=== PATIENT | female | born 1990 | race Caucasian/White ===

== ENCOUNTER → 2023-09-18 | Outpatient (CLI) | payer OTHER ==
[~2023-09-18] MED LIST: CYAN500; DULO60 PO; GABA300 PO; HYDACE5 PO; IBUP200 PO; IBUP400 PO; LEVCAR100L PO; LORA.5 PO; LORA2 PO; METPRE4DP PO; NAPR550 PO; OXYACE5T PO; PREG150 PO; SERT100 PO; UBID100 PO; [UNRECOGNIZED DRUG - OTHER]; [UNRECOGNIZED DRUG - OTHER]; [UNRECOGNIZED DRUG - REMARK]
[2023-09-18 14:28] LABS: BASOPHILS ABSOLUTE AUTO 0.03 K/mm3 (0.00-0.23); BASOPHILS PERCENT AUTO 1 % (0-2); EOSINOPHILS ABSOLUTE AUTO 0.15 K/mm3 (0.00-0.68); EOSINOPHILS PERCENT AUTO 3 % (0-6); Hematocrit 41.5 % (33.0-51.0); Hemoglobin 13.4 g/dL (11.5-16.0); IMMATURE GRAN ABSOLUTE AUTO 0.02 K/mm3 (0.00-0.10); IMMATURE GRAN PERCENT AUTO 0 % (0-1); LYMPHOCYTES ABSOLUTE AUTO 1.41 K/mm3 (0.84-5.20); LYMPHOCYTES PERCENT AUTO 27 % (21-46); MONOCYTES PERCENT AUTO 6 % (4-13); Mean Corpuscular HGB 28.5 pg (26.0-34.0); Mean Corpuscular HGB Conc 32.3 g/dL (31.5-36.5); Mean Corpuscular Volume 88 fL (80-100); Mean Platelet Volume 9.4 fL (9.1-12.4); NEUTROPHILS ABSOLUTE AUTO 3.38 K/mm3 (1.96-9.15); NEUTROPHILS PERCENT AUTO 64 % (41-73); Platelet Count 350 K/mm3 (150-400); RDW Coefficient Variation 14.3 % (11.7-14.2); RDW Standard Deviation 46.5 fL (35.1-46.3); Red Blood Cell Count 4.71 M/mm3 (3.80-5.20); White Blood Cell Count 5.29 K/mm3 (4.00-11.30)
[2023-09-18 14:57] LABS: Percent Saturation 33.1 % (15.0-50.0)
== END ==
LOC: LAB SHORT 12:28 → LAB 12:28
PROVIDERS: General Practice
DX: R53.81 Other malaise (principal); R53.83 Other fatigue
CPT/HCPCS: 82728; 83540; 83550; 85025

== ENCOUNTER → 2024-02-20 | Outpatient (CLI) | payer OTHER | LOC: LAB SHORT 15:52 → LAB 15:52 | DX: N39.0 Urinary tract infection, site not specified (principal) | CPT/HCPCS: 87086 ==

== ENCOUNTER → 2024-02-22 | Outpatient (CLI) | payer OTHER ==
[2024-02-22 13:51] LABS: Source, Urine Clean Catch
[2024-02-22 15:27] LABS: Bacteria Few /hpf; Squamous Epithelial Cells Few /hpf (Few)
[2024-02-23 07:39] LABS: Bacterial Vaginosis PCR Negative (NEGATIVE); Candida Group, PCR NOT DETECTED (NOT DETECT); Candida glabrata-krusei, PCR NOT DETECTED (NOT DETECT)
[2024-02-25 09:17] LABS: APTIMA MEDIA TYPE Unisex Swab; C. TRACHOMATIS BY TMA Negative (Negative); N. GONORRHOEAE BY TMA Negative (Negative); SPECIMEN SOURCE Cervical
== END | disposition home or self-care (01) ==
LOC: LAB 13:46 → LAB SHORT 13:46
PROVIDERS: Obstetrics & Gynecology
DX: Z11.3 Encounter for screening for infections with a predominantly sexual mode of transmission (principal); N76.0 Acute vaginitis; R39.9 Unspecified symptoms and signs involving the genitourinary system
CPT/HCPCS: 81015; 87086; 87481; 87491; 87591; 87661; 87801

== ENCOUNTER 2024-04-21 11:51 | Day surgery (SDC) | payer OTHER ==
[~2024-04-21] VITALS: Ht 170.2 cm; Wt 77.0 kg
[2024-04-21] VITALS (15 sets, daily range): BP systolic 95–123; BP diastolic 50–87
[~2024-04-21 11:51] MED LIST changes: +ERGO50000 PO; +Estrace Vagin42.5 GM PV; +MIDO5 PO; +RIZATRIPTAN10 M3 PO; -SERT100 PO; +SERT50 PO
[2024-04-21] MEDS ORDERED: Lactated Ringer's 1,000 ML IV SCH (11:55)
--- NOTE | 2024-04-21 13:16 | NUR ---
History, Chart, Medications and Allergies reviewed before start of procedure. Patient up to Ambulate independently. Gait steady. Pre-Op teaching done. Pt verbalizes understanding. Patient confirms NPO status and agrees with scheduled surgery. Patient reports completing Chlorhexadine shower X2 prior to admission to hospital. Surgical site prepped with 2% Chlorhexidine cloth wipe. Patient States Post-Procedure ride home has been arranged.
[2024-04-21] MEDS ORDERED: propofoL 20 ML IV ONE (13:42)
[2024-04-21] MEDS ORDERED: FentaNYL Citrate 50 MCG/ML 2 ML Injection ONE ×2 (13:43→16:53)
[2024-04-21] MEDS ORDERED: Rocuronium Bromide 10 MG/ML 5ML Injection IV ONE (13:43)
[2024-04-21] MEDS ORDERED: Bupivacaine 0.5% HCl 5 MG/ML 30MLVIAL ONE (14:12)
[2024-04-21] MEDS ORDERED: Midazolam HCl 1MG / ML 2ML Vial IV SCH (14:25)
[2024-04-21] MEDS ORDERED: Lidocaine HCl 2% 20 ML MDV ONE (14:33)
[2024-04-21] MEDS ORDERED: LevonorgestreL 1 EACH IUD VAG ONE (14:40)
[2024-04-21] MEDS ORDERED: Dexamethasone Sod Phos 10 MG/ML 1ML VIAL ONE (14:45)
[2024-04-21] MEDS ORDERED: Ketorolac Tromethamine 30mg Vial ONE (14:45)
[2024-04-21] MEDS ORDERED: Ondansetron HCl 2 MG / ML 2ML Vial ONE (14:45)
[2024-04-21] MEDS ORDERED: Sugammadex Sodium 200 MG/2ML SDV (100 MG/ML) ONE (14:47)
[2024-04-21] MEDS ORDERED: OxyCODONE 5 mg/Acetamin 325 mg TABLET PO PRN (17:25)
--- NOTE | 2024-04-21 18:17 | NUR ---
Discharge instructions reviewed with patient. Patient verbalizes understanding. Copy given to patient to take home. BELONGINGS RETURNED TO PT INCLUDING CELL PHONE. MESH PANITES AND A PAD GIVEN TO PT. PT ABLE TO AMBULATE TO RESTROOM AND WAS ABLE TO URINATE. Discharged via wheelchair to private car for ride home.
== END 2024-04-21 23:00 | disposition home or self-care (01) ==
LOC: ORSCMMR 11:51 → ORD 13:00 → ORSCMMR 23:00
PROVIDERS: Obstetrics & Gynecology
PROC: 0U5F4ZZ Destruction of Cul-de-sac, Percutaneous Endoscopic Approach (ICD-10-PCS; principal; 2024-04-21 13:00)
PROC: 0UH97HZ Insertion of Contraceptive Device into Uterus, Via Natural or Artificial Opening (ICD-10-PCS; principal; 2024-04-21 13:00)
DX: N80.329 Endometriosis of the posterior cul-de-sac, unspecified depth (principal); Z30.430 Encounter for insertion of intrauterine contraceptive device; F41.9 Anxiety disorder, unspecified; F32.A Depression, unspecified; Z79.899 Other long term (current) drug therapy
CPT/HCPCS: 88305; A9270; J1100; J1885; J2250; J2405; J2704; J3010; J7120; J7297

== ENCOUNTER 2024-05-30 08:02 | Emergency (ER) | payer OTHER ==
[~2024-05-30] VITALS: Ht 172.7 cm; Wt 81.7 kg
[2024-05-30 09:29] VITALS: BP 111/74
== END 2024-05-30 09:42 | disposition home or self-care (01) ==
LOC: ER 08:02
DX: J10.1 Influenza due to other identified influenza virus with other respiratory manifestations (principal); Z88.8 Allergy status to other drugs, medicaments and biological substances; Z79.899 Other long term (current) drug therapy
CPT/HCPCS: 71046; 99283-25